=== PATIENT | male | born 1960 | race Caucasian/White ===

== ENCOUNTER 2018-05-06 02:42 | Emergency (ER) | payer OTHER, SELFPAY ==
[2018-05-06] MEDS ORDERED: ASPIRIN 81 MG CHEWABLE TABLET ONE (03:44)
[2018-05-06] MEDS ORDERED: NA CHLORIDE 0.9% 1,000 ML ONE (03:45)
[2018-05-06] MEDS ORDERED: AMLODIPINE 5 MG TAB ONE (03:45)
[2018-05-06] MEDS ORDERED: AMOX/K CLAV 875 MG TAB ONE (03:45)
[2018-05-06] MEDS ORDERED: CEFTRIAXONE/SWI 1gm 1 GM/10 ML SYR ONE (03:46)
[2018-05-06 03:53] LABS: Absolute Lymphocytes (CBC) 1.8 K/uL (0.7-4.9); Absolute Monocytes 0.4 K/uL (0.1-1.3); Absolute Neutrophil 4.5 K/uL (1.8-8.0); Basophils % 0.5 % (0-1.3); Eosinophils % 4.6 % (0-4.4); Hematocrit 44.4 % (39.6-49.0); Lymphocytes % 25.1 % (15.3-44.8); MPV 9.3 fL (7.6-11.3); Monocytes % 6.2 % (3.3-12.3); RBC Red Blood Cell Count 4.86 M/uL (4.33-5.43)
[2018-05-06 03:54] LABS: Protime INR 0.97
[2018-05-06 04:07] LABS: ALT/SGPT 21 U/L (12-78); AST/SGOT 13 U/L (15-37); Albumin 4.1 g/dL (3.4-5.0); Alkaline Phosphatase 72 U/L (45-117); BUN Blood Urea Nitrogen 16 mg/dL (7-18); Bicarbonate 28 mmol/L (21-32); Bilirubin Direct 0.2 mg/dL (0-0.2); Bilirubin Total 0.7 mg/dL (0.2-1.0); Glucose Level 93 mg/dL (74-106); Magnesium 2.1 mg/dL (1.8-2.4); NT PRO-BNP 7 pg/mL (<125); Protein, Total 7.4 g/dL (6.4-8.2); Sodium Level 139 mmol/L (136-145); Troponin (Emerg Dept Use Only) < 0.02 ng/mL (0.0-0.045)
--- NOTE | 2018-05-06 04:54 | ER ---
Nurse's Notes [facility] Name: Nico Caceres Age: 58 yrs Sex: Male : 1960 Arrival Date: 05/06/2018 Time: 02:45 Bed 15 Private MD: Diagnosis: Essential (primary) hypertension;Dizziness and giddiness;Otitis media, unspecified, left ear Presentation: 05/06 02:47 Presenting complaint: Patient states: For the past 2 months I have been having pain in jb4 my left ear. It feels like something is crawling or I have fluid draining from my ear. I noticed tonight that my blood pressure went up and I had a sharp stabbing pain and I got dizzy all of a sudden. Transition of care: patient was not received from another setting of care. Onset of symptoms was May 06, 2018. Risk Assessment: Do you want to hurt yourself or someone else? Patient reports no desire to harm self or others. Initial Sepsis Screen: Does the patient meet any 2 criteria? No. Patient's initial sepsis screen is negative. Does the patient have a suspected source of infection? No. Patient's initial sepsis screen is negative. Care prior to arrival: None. 02:47 Method Of Arrival: Ambulatory jb4 02:47 Acuity: HAMZAH 4 jb4 Triage Assessment: 02:47 General: Appears in no apparent distress. comfortable, Behavior is calm, cooperative, jb4 appropriate for age. Pain: Complains of pain in left ear Pain does not radiate. Pain currently is 3 out of 10 on a pain scale. Quality of pain is described as sharp, stabbing, Pain began 2 months ago. Is intermittent. EENT: Tympanic membrane clear on left ear Ear canal clear on left ear Throat is clear is pink. Neuro: Level of Consciousness is awake, alert, obeys commands, Oriented to person, place, time, situation. Cardiovascular: Patient's skin is warm and dry. Respiratory: Airway is patent Respiratory effort is even, unlabored, Respiratory pattern is regular, symmetrical. GI: No signs and/or symptoms were reported involving the gastrointestinal system. : No signs and/or symptoms were reported regarding the genitourinary system. Derm: Skin is intact, Skin is pink, warm \T\ dry. Musculoskeletal: Circulation, motion, and sensation intact. Historical: - Allergies: 02:47 mushrooms; jb4 - Home Meds: 02:47 BP medication [Active]; Miri-Taylor Plus Cold (PE) oral oral [Active]; jb4 - PMHx: 02:47 Hypertension; jb4 - PSHx: 02:47 Cholecystectomy; jb4 - Immunization history:: Adult Immunizations up to date. - Social history:: Smoking status: Patient/guardian denies using tobacco, Patient uses alcohol, occasionally. - Ebola Screening: : No symptoms or risks identified at this time. Screenin:47 Abuse screen: Denies threats or abuse. Nutritional screening: No deficits noted. jb4 Tuberculosis screening: No symptoms or risk factors identified. Fall Risk None identified. Assessment: 02:47 General: See triage assesssment.. jb4 03:53 Reassessment: Patient appears in no apparent distress at this time. Patient and/or jb4 family updated on plan of care and expected duration. Pain level reassessed. Patient is alert, oriented x 3, equal unlabored respirations, skin warm/dry/pink. Pt to CT via wheelchair. 05:12 Reassessment: Patient appears in no apparent distress at this time. Patient and/or jb4 family updated on plan of care and expected duration. Pain level reassessed. Patient is alert, oriented x 3, equal unlabored respirations, skin warm/dry/pink. Discussed D/c, F/u with pt, denies questions or concerns. Vital Signs: 02:47 BP 167 / 101; Pulse 76; Resp 16; Temp 98.2(O); Pulse Ox 98% on R/A; Weight 70.31 kg [facility] (R); Height 5 ft. 4 in. (162.56 cm) (R); Pain 3/10; 04:22 BP 147 / 91; Pulse 60; Resp 16; Pulse Ox 98% on R/A; jb4 05:00 BP 156 / 94; Pulse 61; Resp 16; Pulse Ox 98% on R/A; jb4 02:47 Body Mass Index 26.61 (70.31 kg, 162.56 cm) jb4 ED Course: 02:45 Patient arrived in ED. al2 02:47 Arm band placed on left wrist. jb4 02:47 Patient has correct armband on for positive identification. Bed in low position. Call jb light in reach. Side rails up X 1. Pulse ox on. NIBP on. 02:55 Song Hwang, RN is Primary Nurse. jb4 02:56 Triage completed. jb4 03:04 José Miguel Vidales MD is Attending Physician. clarice 03:25 Inserted saline lock: 18 gauge in right antecubital area, using aseptic technique. ds4 Blood collected. 03:36 Troponin (emerg Dept Use Only) Sent. ds4 03:36 PT-INR Sent. ds4 03:36 NT PRO-BNP Sent. ds4 03:36 Magnesium Sent. ds4 03:36 LFT's Sent. ds4 03:36 CBC with Diff Sent. ds4 03:36 Basic Metabolic Panel Sent. ds4 03:37 X-ray completed. Portable x-ray completed in exam room. Patient tolerated procedure kw well. 03:49 EKG done, by ED staff, reviewed by José Miguel Vidales MD. ds4 04:06 CT Head Brain wo Cont In Process Unspecified. EDMS 04:08 CT completed. Patient tolerated procedure well. Patient moved to CT via wheelchair. Patient moved back from CT. 04:27 XRAY Chest (1 view) In Process Unspecified. EDMS 04:54 Natalia Ocasio MD is Referral Physician. clarice 05:00 No provider procedures requiring assistance completed. IV discontinued, intact, jb4 bleeding controlled, Pressure dressing applied. Administered Medications: 03:45 Drug: Aspirin Chewable Tablet 162 mg Route: PO; jb4 04:17 Follow up: Response: No adverse reaction jb4 03:45 Drug: Norvasc 10 mg Route: PO; jb4 04:32 Follow up: Response: No adverse reaction; Blood pressure is lowered jb4 03:45 Drug: NS 0.9% 500 ml Route: IV; Rate: bolus; Site: right antecubital; jb4 04:24 Follow up: Response: No adverse reaction; IV Status: Completed infusion jb4 03:45 Drug: Augmentin 875 mg Route: PO; jb4 04:25 Follow up: Response: No adverse reaction jb4 03:46 Drug: Rocephin - (cefTRIAXone) 1 grams {Note: Administered IVP per pharmacy protocol.} jb4 Route: IVPB; Infused Over: 30 mins; Site: right antecubital; 03:48 Follow up: Response: No adverse reaction; IV Status: Completed infusion jb4 04:26 Drug: NS 0.9% 1000 ml Route: IV; Rate: 125 ml/hr; Site: right antecubital; jb4 05:00 Follow up: Response: No adverse reaction; IV Status: Completed infusion jb4 Outcome: 04:54 Discharge ordered by . clarice 05:00 Discharged to home ambulatory. jb4 05:00 Condition: stable 05:00 Discharge instructions given to patient, Instructed on discharge instructions, follow up and referral plans. medication usage, Demonstrated understanding of instructions, follow-up care, medications, Prescriptions given X 3. 05:16 Patient left the ED. jb4 Signatures: Dispatcher [employer] EDMS José Miguel Vidales MD MD cha Hagler, Lindsey Marin Donovan ds4 Song Hwang, RN RN jb4 Luciana Kirkland
--- NOTE | 2018-05-06 04:54 | EDPHYS ---
Physician Documentation [facility] Name: Nico Caceres Age: 58 yrs Sex: Male : 1960 Arrival Date: 05/06/2018 Time: 02:45 Bed 15 Private MD: ED Physician José Miguel Vidales HPI: 05/06 03:21 This 58 yrs old Male presents to ER via Ambulatory with complaints of Ear clarice Pain, Dizziness. 03:21 The patient presents with pain. The complaints affect the left ear. Onset: The clarice symptoms/episode began/occurred just prior to arrival, this morning. Modifying factors: The symptoms are alleviated by nothing, the symptoms are aggravated by nothing. Associated signs and symptoms: The patient has no apparent associated signs or symptoms. Severity of symptoms: At their worst the symptoms were mild moderate in the emergency department the symptoms have improved. The patient has not experienced similar symptoms in the past. Historical: - Allergies: 02:47 mushrooms; jb4 - Home Meds: 02:47 BP medication [Active]; Miri-De Ruyter Plus Cold (PE) oral oral [Active]; jb4 - PMHx: 02:47 Hypertension; jb4 - PSHx: 02:47 Cholecystectomy; jb4 - Immunization history:: Adult Immunizations up to date. - Social history:: Smoking status: Patient/guardian denies using tobacco, Patient uses alcohol, occasionally. - Ebola Screening: : No symptoms or risks identified at this time. ROS: 03:22 Constitutional: Negative for fever, chills, and weight loss, Eyes: Negative for injury, clarice pain, redness, and discharge, Neck: Negative for injury, pain, and swelling, Cardiovascular: Negative for chest pain, palpitations, and edema, Respiratory: Negative for shortness of breath, cough, wheezing, and pleuritic chest pain, Abdomen/GI: Negative for abdominal pain, nausea, vomiting, diarrhea, and constipation, Back: Negative for injury and pain, : Negative for injury, bleeding, discharge, and swelling, MS/Extremity: Negative for injury and deformity, Skin: Negative for injury, rash, and discoloration, Psych: Negative for depression, anxiety, suicide ideation, homicidal ideation, and hallucinations, Allergy/Immunology: Negative for hives, rash, and allergies, Endocrine: Negative for neck swelling, polydipsia, polyuria, polyphagia, and marked weight changes, Hematologic/Lymphatic: Negative for swollen nodes, abnormal bleeding, and unusual bruising. 03:22 ENT: Positive for ear pain. 03:22 Neuro: Positive for altered mental status. Exam: 03:22 Constitutional: This is a well developed, well nourished patient who is awake, alert, clarice and in no acute distress. Head/Face: Normocephalic, atraumatic. Eyes: Pupils equal round and reactive to light, extra-ocular motions intact. Lids and lashes normal. Conjunctiva and sclera are non-icteric and not injected. Cornea within normal limits. Periorbital areas with no swelling, redness, or edema. Neck: Trachea midline, no thyromegaly or masses palpated, and no cervical lymphadenopathy. Supple, full range of motion without nuchal rigidity, or vertebral point tenderness. No Meningismus. Chest/axilla: Normal chest wall appearance and motion. Nontender with no deformity. No lesions are appreciated. Cardiovascular: Regular rate and rhythm with a normal S1 and S2. No gallops, murmurs, or rubs. Normal PMI, no JVD. No pulse deficits. Respiratory: Lungs have equal breath sounds bilaterally, clear to auscultation and percussion. No rales, rhonchi or wheezes noted. No increased work of breathing, no retractions or nasal flaring. Abdomen/GI: Soft, non-tender, with normal bowel sounds. No distension or tympany. No guarding or rebound. No evidence of tenderness throughout. Back: No spinal tenderness. No costovertebral tenderness. Full range of motion. Male : Normal genitalia with no discharge or lesions. Skin: Warm, dry with normal turgor. Normal color with no rashes, no lesions, and no evidence of cellulitis. MS/ Extremity: Pulses equal, no cyanosis. Neurovascular intact. Full, normal range of motion. Neuro: Awake and alert, GCS 15, oriented to person, place, time, and situation. Cranial nerves II-XII grossly intact. Motor strength 5/5 in all extremities. Sensory grossly intact. Cerebellar exam normal. Normal gait. Psych: Awake, alert, with orientation to person, place and time. Behavior, mood, and affect are within normal limits. 03:22 ENT: Ear canal(s): are normal, no acute changes, TM's: dullness, erythema, that is mild, on the left, fluid levels, is not appreciated, Nose: is normal, no acute changes, Mouth: is normal, no acute changes. 03:24 Neck: External neck: is normal, no acute changes, C-spine: appears grossly normal, no clarice acute changes, Thyroid: appears normal, no acute changes, Trachea: is midline with no obvious abnormalities, no acute changes, ROM/movement: is normal, no acute changes, Meningeal signs: are not present, Kernig's sign is negative, Brudzinski's sign is negative. 03:24 Cardiovascular: Heart sounds: normal, normal S1and S2, no S3 or S4, no murmur, no rub, no gallop, murmur, not appreciated, Edema: is not appreciated, JVD: is not appreciated. Vital Signs: 02:47 BP 167 / 101; Pulse 76; Resp 16; Temp 98.2(O); Pulse Ox 98% on R/A; Weight 70.31 kg jb4 (R); Height 5 ft. 4 in. (162.56 cm) (R); Pain 3/10; 04:22 BP 147 / 91; Pulse 60; Resp 16; Pulse Ox 98% on R/A; jb4 05:00 BP 156 / 94; Pulse 61; Resp 16; Pulse Ox 98% on R/A; jb4 02:47 Body Mass Index 26.61 (70.31 kg, 162.56 cm) jb4 MDM: 03:04 Patient medically screened. [facility] 03:24 Data reviewed: vital signs, nurses notes, lab test result(s), EKG, radiologic studies, [facility] CT scan, plain films. 05/06 03:20 Order name: Basic Metabolic Panel; Complete Time: 04:08 [facility] 05/06 03:20 Order name: CBC with Diff; Complete Time: 04:08 [facility] 05/06 03:20 Order name: LFT's; Complete Time: 04:08 [facility] 05/06 03:20 Order name: Magnesium; Complete Time: 04:08 [facility] 05/06 03:20 Order name: NT PRO-BNP; Complete Time: 04:08 [facility] 05/06 03:20 Order name: PT-INR; Complete Time: 04:08 [facility] 05/06 03:20 Order name: Troponin (emerg Dept Use Only); Complete Time: 04:08 [facility] 05/06 03:20 Order name: XRAY Chest (1 view) [facility] 05/06 03:20 Order name: CT Head Brain wo Cont [facility] 05/06 03:20 Order name: EKG; Complete Time: 03:22 [facility] 05/06 03:20 Order name: Cardiac monitoring; Complete Time: 03:54 [facility] 05/06 03:20 Order name: EKG - Nurse/Tech; Complete Time: 03:36 [facility] 05/06 03:20 Order name: IV Saline Lock; Complete Time: 03:36 [facility] 05/06 03:20 Order name: Labs collected and sent; Complete Time: 03:36 [facility] 05/06 03:20 Order name: O2 Per Protocol; Complete Time: 03:36 [facility] 05/06 03:20 Order name: O2 Sat Monitoring; Complete Time: 03:36 [facility] 05/06 04:08 Order name: EKG; Complete Time: 04:08 [facility] 05/06 04:08 Order name: EKG - Nurse/Tech; Complete Time: 04:14 [facility] Administered Medications: 03:45 Drug: Aspirin Chewable Tablet 162 mg Route: PO; jb4 04:17 Follow up: Response: No adverse reaction jb4 03:45 Drug: Norvasc 10 mg Route: PO; jb4 04:32 Follow up: Response: No adverse reaction; Blood pressure is lowered jb4 03:45 Drug: NS 0.9% 500 ml Route: IV; Rate: bolus; Site: right antecubital; jb4 04:24 Follow up: Response: No adverse reaction; IV Status: Completed infusion jb4 03:45 Drug: Augmentin 875 mg Route: PO; jb4 04:25 Follow up: Response: No adverse reaction jb4 03:46 Drug: Rocephin - (cefTRIAXone) 1 grams {Note: Administered IVP per pharmacy protocol.} jb4 Route: IVPB; Infused Over: 30 mins; Site: right antecubital; 03:48 Follow up: Response: No adverse reaction; IV Status: Completed infusion jb4 04:26 Drug: NS 0.9% 1000 ml Route: IV; Rate: 125 ml/hr; Site: right antecubital; jb4 05:00 Follow up: Response: No adverse reaction; IV Status: Completed infusion jb4 Disposition: 05/06/18 04:54 Discharged to Home. Impression: Essential (primary) hypertension, Dizziness and giddiness, Otitis media, unspecified, left ear. - Condition is Stable. - Discharge Instructions: Dizziness, Otitis Media, Adult, Hypertension, Hypertension, [id number], How to Take Your Blood Pressure, [id number], Aspirin and Your Heart, Dizziness, Mzsj-wo-Vadz, Managing Your Hypertension. - Prescriptions for Augmentin 875- 125 mg Oral Tablet - take 1 tablet by ORAL route every 12 hours for 10 days; 20 tablet. Norvasc 5 mg Oral Tablet - take 1 tablet by ORAL route once daily; 20 tablet. Tylenol- Codeine #3 300-30 mg Oral Tablet - take 2 tablets by ORAL route every 6 hours As needed; 20 tablet. - Medication Reconciliation Form, Thank You Letter, Antibiotic Education, Prescription Opioid Use form. - Follow up: Private Physician; When: 2 - 3 days; Reason: Recheck today's complaints, Continuance of care, Re-evaluation by your physician. Follow up: Natalia Ocasio MD; When: 2 - 3 days; Reason: Recheck today's complaints, Continuance of care, Re-evaluation by your physician. - Problem is new. - Symptoms have improved. Signatures: Dispatcher [employer] EDMS José Miguel Vidales MD MD cha Bryson, James, RN RN jb4 Corrections: (The following items were deleted from the chart) 05:16 04:54 05/06/2018 04:54 Discharged to Home. Impression: Essential (primary) jb4 hypertension; Dizziness and giddiness; Otitis media, unspecified, left ear. Condition is Stable. Discharge Instructions: Dizziness, Otitis Media, Adult, Hypertension, Hypertension, [id number]-[id number]-[id number], How to Take Your Blood Pressure, Iqfj-[id number]-Aqhw, Aspirin and Your Heart, Dizziness, Gysr-mu-Vgig, Managing Your Hypertension. Prescriptions for Augmentin 875-125 mg Oral Tablet - take 1 tablet by ORAL route every 12 hours for 10 days; 20 tablet, Norvasc 5 mg Oral Tablet - take 1 tablet by ORAL route once daily; 20 tablet. and Forms are Medication Reconciliation Form, Thank You Letter, Antibiotic Education, Prescription Opioid Use. Follow up: Private Physician; When: 2 - 3 days; Reason: Recheck today's complaints, Continuance of care, Re-evaluation by your physician. Follow up: Natalia Ocasio; When: 2 - 3 days; Reason: Recheck today's complaints, Continuance of care, Re-evaluation by your physician. Problem is new. Symptoms have improved. clarice
--- NOTE | 2018-05-06 08:38 | RAD REPORT ---
EXAM DESCRIPTION: Aimee Single View05/06/2018 4:26 am CLINICAL HISTORY: Chest pain COMPARISON: none FINDINGS: The lungs appear clear of acute infiltrate. The heart is normal size IMPRESSION: No acute abnormalities displayed
--- NOTE | 2018-05-06 09:08 | RAD REPORT ---
EXAM DESCRIPTION: CT - Head Brain Wo Cont - 05/06/2018 5:41 am CLINICAL HISTORY: Dizziness/left ear pain COMPARISON: 2016 MRI TECHNIQUE: Computed axial tomography of the head was obtained. IV contrast was not requested.Derrelli becky report generated by [employer] and reviewed prior to dictation All CT scans are performed using dose optimization technique as appropriate and may include automated exposure control or mA/KV adjustment according to patient size. FINDINGS: An intracranial bleed is not seen . The ventricles are normal in caliber. No extra-axial fluid collection is noted. 1 centimeter calcification is present within the right temp oral lobe. Fluid within the sinuses/ mastoids is not seen. IMPRESSION: 1 centimeter calcification within the right temporal lobe. This area is without signific ant change from the 2016 MRI and likely is benign. It could be a vascular anomaly/ benign mass or rel ated to prior infection/ inflammation. If patient's symptoms persist MRI of the brain would be recommended.
--- NOTE | 2018-05-06 18:07 | EKG ---
Test Date: 2018-05-06 Test Time: 04:09:48 [employer]able [employer]: AG3 MEASUREMENT RESULTS: Intervals: Rate: 57 CO: 176 QRSD: 88 QT: 396 QTc: 385 [place]: P: 61 CO: 176 QRS: 96 T: 49 INTERPRETIVE STATEMENTS: Sinus bradycardia Rightward axis Borderline ECG No previous ECG available for comparison Electronically Signed On 05-06-18 18:05:28 TUBE PULLER by Christian Victoria
--- NOTE | 2018-05-06 18:08 | EKG ---
Test Date: 2018-05-06 Test Time: 03:42:18 Baker Test: AG3 MEASUREMENT RESULTS: Intervals: Rate: 63 OK: 168 QRSD: 84 QT: 376 QTc: 384 [place]: P: 64 OK: 168 QRS: 95 T: 41 INTERPRETIVE STATEMENTS: Normal sinus rhythm Rightward axis Borderline ECG No previous ECG available for comparison Electronically Signed On 05-06-18 18:05:29 DIE REPAIR by Christian Victoria
== END 2018-05-06 05:16 | disposition home or self-care (01) ==
LOC: ER 02:42
DX: H66.92 Otitis media, unspecified, left ear (principal); I10 Essential (primary) hypertension; R42 Dizziness and giddiness; Z91.018 Allergy to other foods
CPT/HCPCS: 36415; 70450; 71045; 80048; 80076; 83735; 83880; 84484; 85025; 85610; 93005; 96361; 96374; 99284; J0696; J7030